=== PATIENT | male | born 1990 | race Caucasian/White ===

== ENCOUNTER 2022-01-15 13:14 | Inpatient (IN) | payer OTHER, SELFPAY ==
[2022-01-15] VITALS (7 sets, daily range): BP systolic 118–151; BP diastolic 62–83; PULSE 76–93; RESP 15–18; TEMP 36.4–38.4; O2SAT 96–98; BMI 35.9; BMI 36.6
--- NOTE | 2022-01-15 13:27 | CT_ITS ---
STUDY: CT ABDOMEN AND PELVIS WITH CONTRAST REASON FOR EXAM: Male, 31 years old. LLQ pain RADIATION DOSAGE (If Supplied By Facility): CTDIvol = ( 15.38 ) mGy, DLP = ( 1419.17 ) mGycm TECHNIQUE: Transaxial images were obtained from the dome of the diaphragm to the symphysis pubis without oral contrast. 100 ML ISOVUE 300 was administered. Sagittal and coronal images were reconstructed. Individualized dose optimization techniques were used for this CT. COMPARISON: None. FINDINGS: The visualized lung bases are unremarkable. The visualized portions of the heart are within normal limits. There is decreased attenuation of the liver consistent with steatosis. Normal gallbladder and extrahepatic biliary system. Normal spleen. Normal pancreas. Normal bilateral adrenal glands. Normal right kidney. Normal left kidney. Normal visualized stomach. Normal small intestine. There is diverticulosis, with thickening of the colon wall, and pericolonic inflammation changes consistent with acute diverticulitis. There is evidence of a localized perforation along the antimesenteric side of the sigmoid colon. No evidence of abscess or fluid collection is seen at this time. The appendix is visualized and appears normal. Normal abdominal aorta. Normal inferior vena cava. There is borderline retroperitoneal lymphadenopathy with enlarged nodes no greater than 10mm in the short axis diameter. Normal urinary bladder. There is a small umbilical hernia containing fat. Normal osseous structures. CT/Abdomen/Pelvis W IV Cont ONLY IMPRESSION: Findings in comparison with acute sigmoid diverticulitis with localized and contained perforation along the antimesenteric side of the colon. There is no evidence of a fluid collection or abscess at this time. Fatty infiltration of the liver. Electronically Signed: Arian Caballero MD at 14:36 EDT ,
--- NOTE | 2022-01-15 13:29 | EDS_ITS ---
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 He felt left lower quadrant soreness during this, but it was mild. The next day, he was sore all over including there, and over the last couple days all of the other sore areas have dissipated and feel better but the left lower quadrant has continued to worsen. He has no other associated symptoms. No blood in the stool or urine, no nausea or vomiting, no radiation into the back, worse when he moves around and better when he sits still. Prior similar symptoms: No Recent Illness/Hospitalization: No PFSH PFSH Medical History no medical history no medical history Home Medications NK 01/15/22 [History Last Taken Unknown] Allergy/AdvReac Type Severity Reaction Status Date / Time No Known Allergies Allergy Verified 01/15/22 13:16 Surgical History no surgical history no surgical history Social History Smoking Status: Never smoker [facility] ED Constitutional Constitutional ED: Denies chills or fever(s) Eyes Eyes: Denies change in vision or diplopia ENT ENT ED: Denies rhinorrhea or sore throat Cardiovascular Cardiovascular: Denies chest pain or palpitations Respiratory/Chest Respiratory/Chest: Denies cough or dyspnea Gastrointestinal Gastrointestinal: Reports abdominal pain; Denies diarrhea, nausea or vomiting Genitourinary Genitourinary ED: Denies dysuria or hematuria Musculoskeletal Musculoskeletal: Denies back pain or neck pain Integumentary Denies abscess or rash Neurologic Neurologic: Denies headache(s), paresthesias or weakness Psychiatric Psychiatric: Denies anxiety or suicidal thoughts EXAM Physical Exam Const Vital Signs: 01/15/22 13:14 01/15/22 14:30 01/15/22 16:00 Temperature 98.2 F 98.9 F 101.1 F H Temperature Source Temporal Oral Oral Pulse Rate 87 88 84 Respiratory Rate 15 16 16 Blood Pressure 144/83 H 130/71 H 121/64 H Blood Pressure Mean 103 90 83 Pulse Ox 97 96 96 Oxygen Delivery Method Room Air Room Air Room Air 01/15/22 17:08 Temperature 100.9 F H Temperature Source Oral Pulse Rate 83 Respiratory Rate 18 Blood Pressure 141/76 H Blood Pressure Mean 97 Pulse Ox Oxygen Delivery Method Positive well nourished, well developed and obese General Appearance ED: well developed and NAD Nutritional Appearance: obese HEENT Reports moist mucous membranes normocephalic and atraumatic Eyes PERRL and EOMs intact bilaterally Neck full ROM and supple Resp normal respiratory effort and clear to auscultation bilaterally Cardio regular rate, regular rhythm and no murmurs GI non-distended GI Narrative: Moderate tenderness left lower quadrant no guarding or rebound, no other areas of tenderness. No palpable mass, no hematoma palpable or ecchymosis visible in the abdominal wall. Tender all the way to the midline. Auscultation: normoactive bowel sounds Palpation: soft Back/Spine no CVA tenderness General Back: other FROM Extremity normal to inspection General Extremety ED: Negative for edema, pulses abnormal or tenderness General Extremity: Negative for edema or pulses abnormal Neuro oriented x3, CN's II-XII intact bilaterally, no sensory deficits noted and gait normal Sensorium / Orientation: awake and alert Motor Exam: strength 5/5 throughout Skin no rashes or lesions noted and no wounds MDM MDM MDM Narrative Medical decision making narrative: Labs and CT were obtained, patient has a significant leukocytosis and CT shows acute sigmoid diverticulitis with an apparent contained perforation and no evidence of a fluid collection/abscess at this time, given this admission to the hospital with IV antibiotics and surgical consult is indicated. He was given Toradol which did help some with his pain he will be offered more analgesics if needed. Cipro Flagyl given here, while in the emergency department receiving antibiotics he developed a fever which is treated as well. Surgery aware. Lab Data Attestation: I reviewed the patient's lab results. Labs: Laboratory Results - last 24 hr 01/15/22 01/15/22 13:30 13:30 WBC 17.4 H RBC 4.92 Hgb 14.1 Hct 42.1 MCV 85.6 MCH 28.7 MCHC 33.5 RDW Std Deviation 40.1 RDW Coeff of Jarrell 12.9 Plt Count 256 MPV 9.7 Immature Gran % (Auto) 0.500 Neut % (Auto) 80.4 H Lymph % (Auto) 9.7 L Bertie % (Auto) 8.8 Eos % (Auto) 0.2 Baso % (Auto) 0.4 Absolute Neuts (auto) 14.0 H Absolute Lymphs (auto) 1.69 Nucleated RBC % 0 Diff Path Review May foll Platelet Estimate ADEQUATE RBC Morphology NORM C+C Sodium 134 L Potassium 3.7 Chloride 103 Carbon Dioxide 26.0 Anion Gap 5 BUN 11 Creatinine 0.84 Estim Creat Clear Calc 141.14 Est GFR (MDRD) Af Amer 139 Est GFR (MDRD) Non-Af 115 BUN/Creatinine Ratio 13.2 Glucose 145 H Calcium 8.7 Radiography Diagnostic Testing: Clinical Impression(s) from Imaging Studies Abdomen/Pelvis CT 01/15/22 13:27 IMPRESSION: Findings in comparison with acute sigmoid diverticulitis with localized and contained perforation along the antimesenteric side of the colon. There is no evidence of a fluid collection or abscess at this time. Fatty infiltration of the liver. Electronically Signed: Arian Caballero MD at 14:36 EDT , Discharge Plan Dx/Rx/DC Orders Clinical Impression: Diverticulitis of colon with perforation Disposition Disposition: Acute Care Hospital [facility]
[2022-01-15] MEDS: Ketorolac 30 MG/ML Syringe IV (13:36)
[2022-01-15] MEDS: 0.9% Normal Saline 1,000 ML 1000 ML IV (13:36)
[2022-01-15 13:41] LABS: Absolute Lymphocyte Count 1.69 X10^3/uL (0.83-4.51); Basophil# 0.07 X10^3/uL; Basophil% 0.4 % (0-1); Eosinophil# 0.04 X10^3/uL; Eosinophils% 0.2 % (0-5); Hematocrit 42.1 % (40-54); Hemoglobin 14.1 g/dL (13.0-16.5); Lymphocyte # 1.69 X10^3/ul (0.83-4.51); Lymphocyte % 9.7 % (19-41); Mean Corp Hgb Conc 33.5 g/dL (32-36); Mean Corpuscular Hgb 28.7 pg (27.0-32.0); Mean Corpuscular Volume 85.6 fL (80-94); Mean Platelet Vol. 9.7 fl (6.2-12.0); Monocyte# 1.53 X10^3/uL; Monocyte% 8.8 % (0-10); NRBC Flagged by Analyzer 0 % (0-5); Neutrophil % 80.4 % (47-70); POSITIVE DIFFERENTIAL YES; Platelet Count 256 K/mm3 (150-450); RBC Distribution Width CV 12.9 % (11.6-14.6); RBC Distribution Width SD 40.1 fl (35.1-43.9); Red Blood Count 4.92 M/mm3 (4.6-6.2); White Blood Count 17.4 K/mm3 (4.4-11.0)
[2022-01-15 13:46] LABS: Differential Indicated SCAN CRITERIA MET
[2022-01-15 13:56] LABS: Anion Gap 5 (5-15); BUN 11 mg/dL (7-18); BUN/Creat Ratio 13.2 RATIO (10-20); Calcium,Total 8.7 mg/dL (8.5-10.1); Chloride 103 mmol/L (98-107); Creatinine, Serum 0.84 mg/dL (0.70-1.30); EST Glomerular Filtration Rate 115 mL/min (>60); Est Glom Filt Rate - Afr Amer 139 mL/min (>60); Estimated Creatinine Clearance 141.14 ml/min; Glucose 145 mg/dL (74-106); Potassium 3.7 mmol/L (3.5-5.1); Sodium Level 134 mmol/L (136-145)
[2022-01-15 14:14] LABS: Platelet Estimate ADEQUATE (ADEQ); Red Cell Morphology NORM C+C NORMAL (NORM C&C)
[2022-01-15] MEDS: Ciprofloxacin 400 MG/200 ML BAG 200 MG IV (14:54)
[2022-01-15] MEDS: metroNIDAZOLE 500 MG/100 ML BAG 100 MG IV (16:09)
[2022-01-15] MEDS: Acetaminophen 500 MG Tablet 1000 MG PO (16:50)
--- NOTE | 2022-01-15 17:09 | ED.RN ---
Throughout duration of receiving IV antibiotics, patient continues to refuse admission. Dr. Coley notified at time of development of a fever, was given Tylenol per order.
--- NOTE | 2022-01-15 17:37 | PCM.HP.STD ---
Documented by User: [email or web address] GascaC 01/15/22 17:51 HPI - General General Date of Admission: 01/15/22 Date of Service: 01/15/22 Chief Complaint: Abdominal pain HPI Narrative AYLA VELARDE, is a 31 M who presents with abdominal pain. Patient states that abdominal pain started Friday after he picked up a plow. Patient states that he originally thought that it was a strained muscle but his abdominal pain has continued to get worse. Patient states that he has not had any nausea or vomiting but has decreased appetite over the past 2 days. Patient has no medical history and has never had surgery before [facility] Medical History no medical history Home Medications NK 01/15/22 [History Last Taken Unknown] Allergy/AdvReac Type Severity Reaction Status Date / Time No Known Allergies Allergy Verified 01/15/22 13:16 Surgical History no surgical history Social History Smoking Status: Never smoker ROS Constitutional Constitutional: Reports chills, fever(s) and malaise; Denies anorexia, fatigue or weakness Cardiovascular Cardiovascular: Denies chest pain, edema, palpitations or syncope Respiratory/Chest Respiratory/Chest: Denies cough, shortness of breath at rest, shortness of breath with exertion or wheezing Gastrointestinal Gastrointestinal: Reports abdominal pain; Denies constipation, diarrhea, nausea or vomiting Genitourinary Genitourinary: Denies dysuria Musculoskeletal Musculoskeletal: Denies back pain, extremity pain, joint pain or joint stiffness Integumentary Integumentary: Denies dry skin Neurologic Neurologic: Denies abnormal gait, abnormal speech, confusion or dizziness Psychiatric Psychiatric: Denies anxiety or depression Endocrine Endocrinology: Denies change in body appearance Hematologic/Lymphatic Hematologic/Lymphatic: Denies anemia Vital Signs Vital Signs Vital Signs: 01/15/22 13:14 01/15/22 14:30 01/15/22 16:00 Temperature 98.2 F 98.9 F 101.1 F H Temperature Source Temporal Oral Oral Pulse Rate 87 88 84 Respiratory Rate 15 16 16 Blood Pressure 144/83 H 130/71 H 121/64 H Blood Pressure Mean 103 90 83 Pulse Ox 97 96 96 Oxygen Delivery Method Room Air Room Air Room Air 01/15/22 17:08 Temperature 100.9 F H Temperature Source Oral Pulse Rate 83 Respiratory Rate 18 Blood Pressure 141/76 H Blood Pressure Mean 97 Pulse Ox Oxygen Delivery Method Weight Weight: 265 lb Body Mass Index (BMI) 35.9 Physical Exam Const alert, oriented x3 and no apparent distress General Appearance: cooperative HEENT normocephalic and head/scalp atraumatic Eyes conjunctivae normal and no scleral icterus Neck supple General: trachea midline Resp normal respiratory effort, normal air movement and clear to auscultation bilaterally Cardio regular rate, regular rhythm, S1 normal heart sound, S2 normal heart sound and peripheral pulses 2+ throughout GI soft to palpation Palpation: tender RLQ Extremity normal capillary refill and no clubbing, cyanosis or edema General Extremity: no tenderness to palpation of joints or extremities Skin General Skin Exam: no breakdown and turgor normal Lesions: no lesions Rashes: no rashes Neuro no focal motor deficits and no sensory deficits noted Motor Exam: Negative for general weakness Psych thought process normal and affect normal Appearance: appropriate Results Lab / Micro Data Result Diagrams: 01/15/22 13:30 01/15/22 13:30 Labs: Laboratory Results - last 24 hr 01/15/22 13:30: WBC 17.4 H, RBC 4.92, Hgb 14.1, Hct 42.1, MCV 85.6, MCH 28.7, MCHC 33.5, RDW Std Deviation 40.1, RDW Coeff of Jarrell 12.9, Plt Count 256, MPV 9.7, Immature Gran % (Auto) 0.500, Neut % (Auto) 80.4 H, Lymph % (Auto) 9.7 L, [place] % (Auto) 8.8, Eos % (Auto) 0.2, Baso % (Auto) 0.4, Absolute Neuts (auto) 14.0 H, Absolute Lymphs (auto) 1.69, Nucleated RBC % 0, Diff Path Review May foll, Platelet Estimate ADEQUATE, RBC Morphology NORM C+C 01/15/22 13:30: Sodium 134 L, Potassium 3.7, Chloride 103, Carbon Dioxide 26.0, Anion Gap 5, BUN 11, Creatinine 0.84, Estim Creat Clear Calc 141.14, Est GFR (MDRD) Af Amer 139, Est GFR (MDRD) Non-Af 115, BUN/Creatinine Ratio 13.2, Glucose 145 H, Calcium 8.7 Radiology Impression Abdomen/Pelvis CT 01/15/22 13:27 IMPRESSION: Findings in comparison with acute sigmoid diverticulitis with localized and contained perforation along the antimesenteric side of the colon. There is no evidence of a fluid collection or abscess at this time. Fatty infiltration of the liver. Electronically Signed: Arian Caballero MD at 14:36 EDT , Assessment & Plan Assessment/Plan (1) Diverticulitis of colon with perforation: PLAN: 1. Diverticulitis of colon with perforation -Admit to [facility] -Merrem 1 g every 8 hours IV -General surgery consulted, Dr. Michel at bedside evaluating patient during my evaluation. -Normal saline 125 mL/h -Pain management regimen ordered -Nutrition consulted for recommendations for diet for diverticulosis -Patient n.p.o. with sips and chips -CBC and BMP ordered in a.m., white blood cell count 17.4 DVT prophylaxis-low risk encourage ambulation This patient was seen by Kellie Garcia, ALHAJI-C under the supervision of Dr. Prater. 27 minutes spent in clinical coordination of patient's plan of care. Documented by User: Dr. Cristobal Prater DO 01/15/22 19:41 HPI - General General Date of Admission: 01/15/22 [facility] Medical History no medical history Home Medications NK 01/15/22 [History Last Taken Unknown] Allergy/AdvReac Type Severity Reaction Status Date / Time No Known Allergies Allergy Verified 01/15/22 13:16 Surgical History no surgical history Social History Smoking Status: Never smoker Results Lab / Micro Data Result Diagrams: 01/15/22 13:30 01/15/22 13:30 Charges/Coding Addendum Addendum: Patient was seen and examined independently of Mary Garcia today, he came to the emergency room today with complaints of left lower quadrant abdominal pain over the last several days. Work-up in the emergency room revealed the patient to have findings compatible with acute sigmoid diverticulitis with localized and contained perforation along the antimesenteric side of the colon. There was no evidence of abscess however. Initially the patient did not want to be admitted to the hospital but then ran a temperature in the emergency room and consented to admission. Work-up in the ER included a CBC which showed an elevated white blood cell count. Patient has no chronic medical issues. On examination he appeared in good health and spirits. Vital signs as documented. Skin warm and dry and without overt rashes. Neck without JVD, neck was supple, trachea midline, thyroid was normal. Lungs clear bilaterally, normal air movement was noted. Heart exam notable for regular rhythm, normal sounds and absence of murmurs, rubs or gallops. Abdomen-examination of the abdomen reveals left lower quadrant abdominal tenderness on palpation, patient has bowel sounds present in all 4 quadrants, there is no rebound abdominal tenderness noted. No organomegaly could be appreciated.. Extremities nonedematous, no cyanosis was noted, no clubbing was noted. Neuro: Cranial nerves II through XII are grossly intact, no focal motor deficits were noted, sensation to light touch and pinprick intact, motor exam 5/5 throughout. Psych: Patient is alert and oriented x3, he does not appear anxious or depressed, he does not appear agitated. Impression #1 acute diverticulitis with perforation of sigmoid colon without abscess-patient will be admitted to [facility] 3, he will be given IV antibiotics and IV fluids, he was seen in consultation by general surgery. IV pain medications will be administered if needed, IV antinausea meds will be administered also. I have reviewed Mary Garcia's history and physical including her medical assessment and plan of care and with the above additions endorse it. Total clinical time spent by myself addressing the patient's medical issues, reviewing the patient's data, and collaborating with the patient's care team: 43 minutes Visit Charges Inpatient E&M: 06818 Init Hosp L3
--- NOTE | 2022-01-15 17:42 | CON.PCM.SX_ITS ---
Assessment & Plan Assessment/Plan (1) Diverticulitis of colon with perforation: PLAN: CT abdomen pelvis reviewed patient, CT consistent with sigmoid diverticulitis with contained perforation. Patient will be admitted kept n.p.o./IV fluids okay for sips and chips Leukocytosis IV antibiotics per primary. Discussed with patient plan for conservative management unless increased white blood count increased pain or change in vital signs. Patient over the question this time. We will likely repeat CT abdomen pelvis in a couple days. Wendi Michel M.D. Pager: [phone] [facility] [address] [place] [address], Outpatient Pavilion, [address] [place] [address] Office: [phone] HPI Consult Data Date of Consult: 01/16/22 HPI Narrative HPI Narrative: AYLA VELARDE, is a 31 M who presents left lower quadrant abdominal pain which got worse on Friday. Patient last ate lunch today but has not had much of an appetite since the weekend. 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 Patient states that the soreness got better except for his abdomen was still sore on Friday did get worse. Patient had some nausea denies any vomiting. Patient admits to chills/feeling warm CT abdomen pelvis did show sigmoid diverticulitis with perforation?contained, white blood count 17.4. Patient did get IV antibiotics in ER. [facility] Medical History no medical history Home Medications NK 01/15/22 [History Last Taken Unknown] Allergy/AdvReac Type Severity Reaction Status Date / Time No Known Allergies Allergy Verified 01/15/22 13:16 Surgical History no surgical history Social History Smoking Status: Never smoker ROS Constitutional Constitutional: Reports anorexia, chills and fever(s) ENT HEENT: Denies dizziness Cardiovascular Cardiovascular: Denies chest pain Respiratory/Chest Respiratory/Chest: Denies shortness of breath at rest Gastrointestinal Gastrointestinal: Reports abdominal pain; Denies constipation, diarrhea, heartburn, hematemesis, melena or vomiting Genitourinary Genitourinary: Denies burning urination or dysuria Musculoskeletal Musculoskeletal: Denies joint pain Integumentary Integumentary: Denies rash Neurologic Neurologic: Denies abnormal gait, abnormal hearing, focal weakness, paresthesias or sensory deficit Psychiatric Psychiatric: Denies depression Endocrine Endocrinology: Denies palpitations Hematologic/Lymphatic Hematologic/Lymphatic: Denies anemia, easy bleeding or easy bruising Physical Exam Const alert, oriented x3 and no apparent distress HEENT normocephalic and head/scalp atraumatic Resp normal respiratory effort Cardio regular rate GI soft to palpation; Negative for non-distended Palpation: tender LLQ (No peritoneal signs); Negative for guarding Extremity no clubbing, cyanosis or edema Skin no rashes or lesions noted Neuro CN's II-XII intact bilaterally Psych mental status grossly normal Lab / Micro Data Result Diagrams: 01/16/22 06:00 01/16/22 06:00 Labs: Laboratory Results - last 24 hr 01/15/22 13:30: WBC 17.4 H, RBC 4.92, Hgb 14.1, Hct 42.1, MCV 85.6, MCH 28.7, MCHC 33.5, RDW Std Deviation 40.1, RDW Coeff of Jarrell 12.9, Plt Count 256, MPV 9.7, Immature Gran % (Auto) 0.500, Neut % (Auto) 80.4 H, Lymph % (Auto) 9.7 L, M gregoria % (Auto) 8.8, Eos % (Auto) 0.2, Baso % (Auto) 0.4, Absolute Neuts (auto) 14.0 H, Absolute Lymphs (auto) 1.69, Nucleated RBC % 0, Diff Path Review May foll, Platelet Estimate ADEQUATE, RBC Morphology NORM C+C 01/15/22 13:30: Sodium 134 L, Potassium 3.7, Chloride 103, Carbon Dioxide 26.0, Anion Gap 5, BUN 11, Creatinine 0.84, Estim Creat Clear Calc 141.14, Est GFR (MDRD) Af Amer 139, Est GFR (MDRD) Non-Af 115, BUN/Creatinine Ratio 13.2, Glucose 145 H, Calcium 8.7 Radiology Impression Abdomen/Pelvis CT 01/15/22 13:27 IMPRESSION: Findings in comparison with acute sigmoid diverticulitis with localized and contained perforation along the antimesenteric side of the colon. There is no evidence of a fluid collection or abscess at this time. Fatty infiltration of the liver. Electronically Signed: Arian Caballero MD at 14:36 EDT , Charges/Coding Visit Charges Inpatient E&M: 74605 Init Hosp L3
[2022-01-15] MEDS: 0.9% Saline Lock 10 ML Syringe IV ×2 (18:55→23:07)
[2022-01-15] MEDS: oxyCODONE 5 MG Tablet PO (18:55)
[2022-01-15] MEDS: 0.9% Normal Saline 1,000 ML 125 ML IV (18:55)
[2022-01-15] MEDS: Acetaminophen 325 MG Tablet 650 MG PO (23:07)
[2022-01-16] MEDS: oxyCODONE 5 MG Tablet PO ×2 (01:02→06:52)
[2022-01-16] MEDS: 0.9% Normal Saline 1,000 ML 125 ML IV ×3 (03:07→18:29)
[2022-01-16 04:16] VITALS: BP 117/62; PULSE 80; RESP 16; TEMP 37.4; O2SAT 96
[2022-01-16 06:38] LABS: Absolute Lymphocyte Count 1.86 X10^3/uL (0.83-4.51); Absolute Neutrophil Count 13.5 X10^3/uL (2.0-7.7); Basophil# 0.06 X10^3/uL; Basophil% 0.3 % (0-1); Eosinophil# 0.06 X10^3/uL; Eosinophils% 0.3 % (0-5); Hematocrit 38.2 % (40-54); Hemoglobin 12.6 g/dL (13.0-16.5); Lymphocyte # 1.86 X10^3/ul (0.83-4.51); Lymphocyte % 10.6 % (19-41); Mean Corpuscular Hgb 28.7 pg (27.0-32.0); Monocyte# 1.92 X10^3/uL; Monocyte% 10.9 % (0-10); NRBC Flagged by Analyzer 0 % (0-5); Neutrophil # 13.53 X10^3/uL (2.7-7.7); Neutrophil % 77.2 % (47-70); POSITIVE DIFFERENTIAL YES; Platelet Count 252 K/mm3 (150-450); RBC Distribution Width CV 13.2 % (11.6-14.6); RBC Distribution Width SD 41.6 fl (35.1-43.9); Red Blood Count 4.39 M/mm3 (4.6-6.2); White Blood Count 17.6 K/mm3 (4.4-11.0)
[2022-01-16 06:54] LABS: Differential Indicated SCAN CRITERIA MET
[2022-01-16 07:00] LABS: Atypical Lymphocyte 1+ %
[2022-01-16 07:02] LABS: Anion Gap 7 (5-15); BUN 9 mg/dL (7-18); BUN/Creat Ratio 12.3 RATIO (10-20); Calcium,Total 8.4 mg/dL (8.5-10.1); Chloride 104 mmol/L (98-107); Creatinine, Serum 0.73 mg/dL (0.70-1.30); EST Glomerular Filtration Rate 133 mL/min (>60); Est Glom Filt Rate - Afr Amer 161 mL/min (>60); Glucose 102 mg/dL (74-106); Potassium 3.8 mmol/L (3.5-5.1); Sodium Level 136 mmol/L (136-145)
--- NOTE | 2022-01-16 08:43 | PCM.PN.SRG ---
Subjective Subjective Patient states left lower quadrant pain improved from yesterday. Patient is on IV meropenem leukocytosis still 17 Objective Data Objective Data Vital Signs: Vital Signs Temp Pulse Resp BP Pulse Ox 99.4 F H 80 16 117/62 96 01/16/22 04:16 01/16/22 04:16 01/16/22 04:16 01/16/22 04:16 01/16/22 04:16 Oxygen Delivery Method Room Air Weight: 270 lb Body Mass Index (BMI) 36.6 Intake & Output: Intake and Output for Last 24 Hours 01/14/22 01/15/22 01/16/22 23:59 23:59 23:59 Intake Total 1300.25 / 1300.25 1182.5 / 1182.5 Balance 1300.25 / 1300.25 1182.5 / 1182.5 Lab / Micro Data Result Diagrams: 01/16/22 06:00 01/16/22 06:00 Labs: Laboratory Results - last 24 hr 01/15/22 13:30: WBC 17.4 H, RBC 4.92, Hgb 14.1, Hct 42.1, MCV 85.6, MCH 28.7, MCHC 33.5, RDW Std Deviation 40.1, RDW Coeff of Jarrell 12.9, Plt Count 256, MPV 9.7, Immature Gran % (Auto) 0.500, Neut % (Auto) 80.4 H, Lymph % (Auto) 9.7 L, [place] % (Auto) 8.8, Eos % (Auto) 0.2, Baso % (Auto) 0.4, Absolute Neuts (auto) 14.0 H, Absolute Lymphs (auto) 1.69, Nucleated RBC % 0, Diff Path Review December, Platelet Estimate ADEQUATE, RBC Morphology NORM C+C 01/15/22 13:30: Sodium 134 L, Potassium 3.7, Chloride 103, Carbon Dioxide 26.0, Anion Gap 5, BUN 11, Creatinine 0.84, Estim Creat Clear Calc 141.14, Est GFR (MDRD) Af Amer 139, Est GFR (MDRD) Non-Af 115, BUN/Creatinine Ratio 13.2, Glucose 145 H, Calcium 8.7 01/16/22 06:00: WBC 17.6 H, RBC 4.39 L, Hgb 12.6 L, Hct 38.2 L, MCV 87.0, MCH 28.7, MCHC 33.0, RDW Std Deviation 41.6, RDW Coeff of Jarrell 13.2, Plt Count 252, MPV 10.0, Immature Gran % (Auto) 0.700, Neut % (Auto) 77.2 H, Lymph % (Auto) 10.6 L, [place] % (Auto) 10.9 H, Eos % (Auto) 0.3, Baso % (Auto) 0.3, Absolute Neuts (auto) 13.5 H, Absolute Lymphs (auto) 1.86, Nucleated RBC % 0, Diff Path Review December foll, Atypical Lymphocytes 1+ 01/16/22 06:00: Sodium 136, Potassium 3.8, Chloride 104, Carbon Dioxide 25.0, Anion Gap 7, BUN 9, Creatinine 0.73, Estim Creat Clear Calc 162.40, Est GFR (MDRD) Af Amer 161, Est GFR (MDRD) Non-Af 133, BUN/Creatinine Ratio 12.3, Glucose 102, Calcium 8.4 L Radiography Diagnostic Testing: Radiology Impression Abdomen/Pelvis CT 01/15/22 13:27 IMPRESSION: Findings in comparison with acute sigmoid diverticulitis with localized and contained perforation along the antimesenteric side of the colon. There is no evidence of a fluid collection or abscess at this time. Fatty infiltration of the liver. Electronically Signed: Arian Caballero MD at 14:36 EDT Reading Location ID and State: [address] [place] [address] , Service support , Physical Exam Const alert, oriented x3 and no apparent distress Resp normal respiratory effort Cardio regular rate GI soft to palpation; Negative for non-distended Palpation: tender LLQ (No peritoneal signs); Negative for guarding Assessment & Plan Assessment/Plan (1) Diverticulitis of colon with perforation: PLAN: Continue conservative management. Okay for ice chips otherwise n.p.o., IV fluids IV antibiotics changed to Zosyn from meropenem, leukocytosis still 17 Pain control Encourage ambulation Wendi Michel M.D. Pager: [phone] [facility] [address] [place] [address], Outpatient Pavilion, [address] [place] [id number] Office: [phone] Charges/Coding Visit Charges Inpatient E&M: 18251 Subs Hosp L2
[2022-01-16 10:20] VITALS: BP 112/64; PULSE 75; RESP 17; TEMP 37.1; O2SAT 96
--- NOTE | 2022-01-16 10:35 | CASEMGMT ---
LINO STINSON Assessment: Face to Face with pt for initial transition planning/care coordination assessment. LINO STINSON introduced self and role at [facility], pt voices understanding and consents to assessment. Pt is A/O x4 and answers all questions appropriately at this time. Pt lying in bed in no distress. Care providers, pharmacy, and demographics verified/updated. Admitting Dx: diverticulitis with perforation PCP:St[facility]el Specialists:Pt denies. Preferred Pharmacy: [facility] Retail Insurance: MMO Prescription Benefit: Pt is unsure LW/HPOA: Pt denies having a LW/DPOA. Provided pt with social work rack card in case he would like to have this done post hospitalization. LNOK: Daniel/Alberta Chamorro, parents Living Arrangements: Pt lives alone in a ground level apt with no steps to enter. Pt reports he is I in ADL's and denies concerns at home. Transportation: Pt drives self and denies concerns with transportation. DME/HHC: Pt denies having any DME or hx of HHC. Pt states no concerns with going home at time of dc. Pt states no further concerns/needs. CM to follow. Advised pt to ask CM if any further question/concerns/needs arise, voices understanding. Pt Goal: Home Plan: Home
--- NOTE | 2022-01-16 10:51 | PN.HOSP_ITS ---
Documented by User: Kellie Garcia NP-Leena 01/16/22 10:54 Subjective Subjective Patient seen and examined. Patient lying in bed no distress noted. Patient states that his abdominal pain has improved. Discussed with patient that his white blood cell count remains the same. Objective Data Objective Data Vital Signs: Vital Signs Temp Pulse Resp BP Pulse Ox 98.8 F 75 17 112/64 96 01/16/22 10:20 01/16/22 10:20 01/16/22 10:20 01/16/22 10:20 01/16/22 10:20 Oxygen Delivery Method Room Air Weight: 270 lb Body Mass Index (BMI) 36.6 Intake & Output: Intake and Output for Last 24 Hours 01/14/22 01/15/22 01/16/22 23:59 23:59 23:59 Intake Total 1300.25 / 1300.25 2215.0 / 2215.0 Balance 1300.25 / 1300.25 2215.0 / 2215.0 Lab / Micro Data Result Diagrams: 01/16/22 06:00 01/16/22 06:00 Labs: Laboratory Results - last 24 hr 01/15/22 13:30: WBC 17.4 H, RBC 4.92, Hgb 14.1, Hct 42.1, MCV 85.6, MCH 28.7, MCHC 33.5, RDW Std Deviation 40.1, RDW Coeff of Jarrell 12.9, Plt Count 256, MPV 9.7, Immature Gran % (Auto) 0.500, Neut % (Auto) 80.4 H, Lymph % (Auto) 9.7 L, [place] % (Auto) 8.8, Eos % (Auto) 0.2, Baso % (Auto) 0.4, Absolute Neuts (auto) 14.0 H, Absolute Lymphs (auto) 1.69, Nucleated RBC % 0, Diff Path Review May foll, Platelet Estimate ADEQUATE, RBC Morphology NORM C+C 01/15/22 13:30: Sodium 134 L, Potassium 3.7, Chloride 103, Carbon Dioxide 26.0, Anion Gap 5, BUN 11, Creatinine 0.84, Estim Creat Clear Calc 141.14, Est GFR (MDRD) Af Amer 139, Est GFR (MDRD) Non-Af 115, BUN/Creatinine Ratio 13.2, Glucose 145 H, Calcium 8.7 01/16/22 06:00: WBC 17.6 H, RBC 4.39 L, Hgb 12.6 L, Hct 38.2 L, MCV 87.0, MCH 28.7, MCHC 33.0, RDW Std Deviation 41.6, RDW Coeff of Jarrell 13.2, Plt Count 252, MPV 10.0, Immature Gran % (Auto) 0.700, Neut % (Auto) 77.2 H, Lymph % (Auto) 10.6 L, [place] % (Auto) 10.9 H, Eos % (Auto) 0.3, Baso % (Auto) 0.3, Absolute Neuts (auto) 13.5 H, Absolute Lymphs (auto) 1.86, Nucleated RBC % 0, Diff Path Review May foll, Atypical Lymphocytes 1+ 01/16/22 06:00: Sodium 136, Potassium 3.8, Chloride 104, Carbon Dioxide 25.0, Anion Gap 7, BUN 9, Creatinine 0.73, Estim Creat Clear Calc 162.40, Est GFR (MDRD) Af Amer 161, Est GFR (MDRD) Non-Af 133, BUN/Creatinine Ratio 12.3, Glucose 102, Calcium 8.4 L Radiography Diagnostic Testing: Radiology Impression Abdomen/Pelvis CT 01/15/22 13:27 IMPRESSION: Findings in comparison with acute sigmoid diverticulitis with localized and contained perforation along the antimesenteric side of the colon. There is no evidence of a fluid collection or abscess at this time. Fatty infiltration of the liver. Electronically Signed: Arian Caballero MD at 14:36 EDT , Physical Exam Const alert, oriented x3 and no apparent distress General Appearance: cooperative HEENT normocephalic and head/scalp atraumatic Eyes conjunctivae normal and no scleral icterus Neck supple General: trachea midline Resp normal respiratory effort, normal air movement and clear to auscultation bilaterally Cardio regular rate, regular rhythm, S1 normal heart sound, S2 normal heart sound and peripheral pulses 2+ throughout GI soft to palpation Palpation: tender RLQ Extremity normal capillary refill and no clubbing, cyanosis or edema General Extremity: no tenderness to palpation of joints or extremities Skin General Skin Exam: no breakdown and turgor normal Lesions: no lesions Rashes: no rashes Neuro no focal motor deficits and no sensory deficits noted Motor Exam: Negative for general weakness Psych thought process normal and affect normal Appearance: appropriate Assessment & Plan Assessment/Plan (1) Diverticulitis of colon with perforation: PLAN: 1. Diverticulitis of colon with perforation -Patient transition from Merrem I.V. to Zosyn IV at the request of surgery -Dr. Michel following -Normal saline 125 mL/h -Pain management regimen ordered -Nutrition consulted for recommendations for diet for diverticulosis -Patient remains on sips and chips -CBC and BMP ordered in a.m., white blood cell count 17.6 DVT prophylaxis-low risk encourage ambulation This patient was seen by LISA Gasca under the supervision of Dr. Prater. 12 minutes spent in clinical coordination of patient's plan of care. Documented by User: Dr. Cristobal Prater DO 01/16/22 20:02 Objective Data Lab / Micro Data Result Diagrams: 01/16/22 06:00 01/16/22 06:00 Charges/Coding Addendum Addendum: Patient was seen and examined today independently of Mary Garcia, his abdominal pain is improved today, his white count still is elevated at 17.6. I suggest his care with , she would like him changed to Zosyn from meropenem-I do not have a problem with this. I explained to the patient that he would have to continue to stay in the hospital and that I expected his white count to improve tomorrow. He was changed over to clear liquids today by surgery at the urging of the patient. On examination he appeared in good health and spirits. Vital signs as documented. Skin warm and dry and without overt rashes. Neck without JVD, neck was supple, trachea midline, thyroid was normal. Lungs clear bilaterally, normal air movement was noted. Heart exam notable for regular rhythm, normal sounds and absence of murmurs, rubs or gallops. Abdomen-mild left lower quadrant abdominal tenderness to palpation was noted. No rebound abdominal tenderness was noted. Bowel sounds are present, abdomen is not distended. Extremities nonedematous, no cyanosis was noted, no clubbing was noted. Neuro: Cranial nerves II through XII are grossly intact, no focal motor deficits were noted, sensation to light touch and pinprick intact, motor exam 5/5 throughout. Psych: Patient is alert and oriented x3, he does not appear anxious or depressed, he does not appear agitated. #1 acute diverticulitis with perforation of sigmoid colon without abscess- patient will continue on antibiotics with Zosyn, meropenem was stopped today, surgery will see the patient again tomorrow and he will likely undergo a repeat CT of the abdomen tomorrow. Labs will be obtained in the morning. Continue IV fluid administration. I have reviewed Mary Garcia's progress note including her medical assessment and plan of care and with the above additions endorse it. Total clinical time spent by myself addressing the patient's medical issues, reviewing the data, and collaborating with the patient's care team: 20 minutes Visit Charges Inpatient E&M: 69044 Subs Hosp L2
[2022-01-16 15:32] VITALS: BP 127/79; PULSE 76; RESP 16; TEMP 37.1; O2SAT 96
--- NOTE | 2022-01-16 15:38 | CHAPLAIN ---
Type of Pastoral Visit _x__ Initial Visit ___ Follow-up Visit ___ On-call Visit ___ General Patient Visit ___ Spiritual Assessment ___ Family Conference ___ Bereavement ___ Rapid Response ___ Code Blue ___ Other (describe below) Pastoral Care Referral From _x__ Patient ___ Family ___ Nurse ___ Physician ___ Nursing Manager ___ Orthopedic Mechanic ___ Other (describe below) Sacrament/Intervention _x__ Active listening ___ Anointing ___ Adventist ___ Bereavement ___ Communion ___ Tiffanie exploration ___ ___ Life review ___ Prayer ___ Reconciliation ___ Sacrament of Sick ___ Supportive presence ___ Wedding ___ Other (describe below) Pastoral Comments patient is lying down in bed and watching TV; pt states several times that he is fine; pt deflects questions to ask this cds sales advisor how are you?; no needs noted
[2022-01-16] MEDS: Acetaminophen 325 MG Tablet 650 MG PO (15:41)
[2022-01-16 20:15] VITALS: BP 121/75; PULSE 68; RESP 16; TEMP 36.6; O2SAT 99
[2022-01-17 02:15] VITALS: BP 126/67; PULSE 69; RESP 16; TEMP 36.8; O2SAT 98
[2022-01-17] MEDS: 0.9% Normal Saline 1,000 ML 125 ML IV (02:19)
[2022-01-17 06:17] LABS: Absolute Lymphocyte Count 1.83 X10^3/uL (0.83-4.51); Absolute Neutrophil Count 7.9 X10^3/uL (2.0-7.7); Basophil# 0.08 X10^3/uL; Basophil% 0.7 % (0-1); Eosinophil# 0.11 X10^3/uL; Hematocrit 36.5 % (40-54); Hemoglobin 12.1 g/dL (13.0-16.5); Lymphocyte # 1.83 X10^3/ul (0.83-4.51); Lymphocyte % 16.7 % (19-41); Mean Corp Hgb Conc 33.2 g/dL (32-36); Mean Corpuscular Hgb 28.8 pg (27.0-32.0); Mean Corpuscular Volume 86.9 fL (80-94); Mean Platelet Vol. 9.9 fl (6.2-12.0); Monocyte# 1.01 X10^3/uL; Monocyte% 9.2 % (0-10); NRBC Flagged by Analyzer 0 % (0-5); Neutrophil # 7.89 X10^3/uL (2.7-7.7); Neutrophil % 72.1 % (47-70); Platelet Count 263 K/mm3 (150-450); RBC Distribution Width CV 13.2 % (11.6-14.6); RBC Distribution Width SD 41.8 fl (35.1-43.9)
[2022-01-17 06:44] LABS: ALB/GLOB Ratio 0.7 RATIO (0.9-2.4); AST(SGOT) 34 U/L (15-37); Alanine Aminotransfer ALT/SGPT 63 U/L (16-61); Albumin, Serum 2.8 g/dL (3.2-5.0); Alkaline Phosphatase 80 U/L (45-117); Anion Gap 7 (5-15); BUN 8 mg/dL (7-18); BUN/Creat Ratio 10.8 RATIO (10-20); Calcium,Total 8.4 mg/dL (8.5-10.1); Chloride 106 mmol/L (98-107); Creatinine, Serum 0.74 mg/dL (0.70-1.30); EST Glomerular Filtration Rate 132 mL/min (>60); Est Glom Filt Rate - Afr Amer 159 mL/min (>60); Estimated Creatinine Clearance 160.21 ml/min; Glucose 103 mg/dL (74-106); Potassium 3.9 mmol/L (3.5-5.1); Protein, Total 6.8 g/dL (6.4-8.2); Sodium Level 137 mmol/L (136-145)
[2022-01-17 07:40] VITALS: BP 127/84; PULSE 63; RESP 16; TEMP 36.7; O2SAT 98
--- NOTE | 2022-01-17 08:23 | CT_ITS ---
STUDY: CT ABDOMEN AND PELVIS WITH CONTRAST REASON FOR EXAM: Male, 31 years old. Acute diverticulitis with free air RADIATION DOSAGE (If Supplied By Facility): CTDIvol = ( 22.01 ) mGy, DLP = ( 1340.70 ) mGycm TECHNIQUE: Transaxial images were obtained from the dome of the diaphragm to the symphysis pubis with oral contrast. Oral and amp; IV Gastrografin and amp; 100mL Isovue-300 was administered. Sagittal and coronal images were reconstructed. Individualized dose optimization techniques were used for this CT. COMPARISON: Comparison is made with prior study of 01/15/2022. FINDINGS: The visualized lung bases are unremarkable. The visualized portions of the heart are within normal limits. Normal liver. Normal gallbladder and extrahepatic biliary system. Normal spleen. Normal pancreas. Normal bilateral adrenal glands. Normal right kidney. Normal left kidney. Mild degree of increased right perinephric stranding. Normal visualized stomach. Normal small intestine. There is diverticulosis, with thickening of the colon wall, and pericolonic inflammation changes consistent with acute diverticulitis. Stable appearance with focal localized perforation along the antimesenteric side of the sigmoid mesentery. No evidence of a abscess or fluid collection at this time. The appendix is visualized and appears normal. Normal abdominal aorta. Normal inferior vena cava. There is borderline retroperitoneal lymphadenopathy with enlarged nodes no greater than 10mm in the short axis diameter. Normal urinary bladder. There is a small umbilical hernia containing fat. Normal osseous structures. CT/Abdomen/Pelvis WITH Contrast IMPRESSION: Stable examination. Electronically Signed: Arian Caballero MD at 11:49 EDT ,
--- NOTE | 2022-01-17 08:49 | PCM.PN.HOSP ---
Subjective Subjective Patient is a 31-year-old gentleman who presented with left lower quadrant abdominal pain of [address] of the abdomen obtained on admission demonstrated findings consistent with acute sigmoid diverticulitis with localized and contained perforation along the antimesenteric side of the colon. Admitted to regular nursing floor with consultation placed to general surgery Objective Data Objective Data Vital Signs: Vital Signs Temp Pulse Resp BP Pulse Ox 98.2 F 69 16 126/67 H 98 01/17/22 02:15 01/17/22 02:15 01/17/22 02:15 01/17/22 02:15 01/17/22 02:15 Oxygen Delivery Method Room Air Weight: 122.47 kg Body Mass Index (BMI) 36.6 Intake & Output: Intake and Output for Last 24 Hours 01/15/22 01/16/22 01/17/22 23:59 23:59 23:59 Intake Total 1300.25 / 1300.25 3265.0 / 3265.0 1029.17 / 1029.17 Balance 1300.25 / 1300.25 3265.0 / 3265.0 1029.17 / 1029.17 Lab / Micro Data Result Diagrams: 01/17/22 05:57 01/17/22 05:57 Labs: Laboratory Results - last 24 hr 01/17/22 05:57: WBC 11.0, RBC 4.20 L, Hgb 12.1 L, Hct 36.5 L, MCV 86.9, MCH 28.8, MCHC 33.2, RDW Std Deviation 41.8, RDW Coeff of Jarrell 13.2, Plt Count 263, MPV 9.9, Immature Gran % (Auto) 0.300, Neut % (Auto) 72.1 H, Lymph % (Auto) 16.7 L, [place] % (Auto) 9.2, Eos % (Auto) 1.0, Baso % (Auto) 0.7, Absolute Neuts (auto) 7.9 H, Absolute Lymphs (auto) 1.83, Nucleated RBC % 0 01/17/22 05:57: Sodium 137, Potassium 3.9, Chloride 106, Carbon Dioxide 24.0, Anion Gap 7, BUN 8, Creatinine 0.74, Estim Creat Clear Calc 160.21, Est GFR (MDRD) Af Amer 159, Est GFR (MDRD) Non-Af 132, BUN/Creatinine Ratio 10.8, Glucose 103, Calcium 8.4 L, Total Bilirubin 0.90, AST 34, ALT 63 H, Alkaline Phosphatase 80, Total Protein 6.8, Albumin 2.8 L, Globulin 4.0, Albumin/Globulin Ratio 0.7 L Physical Exam Narrative GENERAL: cooperative HEENT: Atraumatic; EYES; Anicteric, Normal Conjunctiva NECK; supple, normal thyroid, RESPIRATORY: Diminished to auscultation CARDIOVASCULAR: Regular S1 S2, GI: soft, normoactive bowel sounds, : No Renal angle tenderness; EXTREMITIES: No edema, no clubbing, MUSCULOSKELETAL: no muscle wasting NEURO: Awake; no lateralizing signs. SKIN: No Rash PSYCH; Flat affect Assessment & Plan Assessment/Plan (1) Diverticulitis of colon with perforation: PLAN: Patient is a 31-year-old gentleman who presented with left lower quadrant abdominal pain of [address] of the abdomen obtained on admission demonstrated findings consistent with acute sigmoid diverticulitis with localized and contained perforation along the antimesenteric side of the colon. Admitted to regular nursing floor with consultation placed to general surgery 1. Acute diverticulitis with colonic perforation ? Admitted to regular nursing floor started on Zosyn, bowel rest pain meds and consultation placed to general surgery patient has been seen by Dr. Amin -Plan is for patient to undergo repeat CT of the abdomen and pelvis with oral contrast prior to making a decision regarding his possible discharge 2. Class II obesity with BMI of 36.6 ? Weight loss advised 3. DVT prophylaxis ? SC Maximilian Charges/Coding Visit Charges Inpatient E&M: 99103 Subs Hosp L2
[2022-01-17 11:25] LABS: Pathologist Review Reviewed
[2022-01-17] MEDS: Contrast Allergy Safety Check IV (11:42)
--- NOTE | 2022-01-17 11:55 | PN.SURG_ITS ---
Subjective Subjective Patient is a 31 y/o M I am following in conjunction with Dr. Michel. Patient notes he is feeling very well. he notes soreness of the left lower quadrant otherwise the pain has completely resolved. He denies nausea, vomiting, fever, chills. He has tolerated clear liquids. He voces he is ready to go home. Objective Data Objective Data Vital Signs: Vital Signs Temp Pulse Resp BP Pulse Ox 98.0 F 63 16 127/84 H 98 01/17/22 07:40 01/17/22 07:40 01/17/22 07:40 01/17/22 07:40 01/17/22 07:40 Oxygen Delivery Method Room Air Weight: 270 lb 0.002 oz Body Mass Index (BMI) 36.6 Intake & Output: Intake and Output for Last 24 Hours 01/15/22 01/16/22 01/17/22 23:59 23:59 23:59 Intake Total 1300.25 / 1300.25 3265.0 / 3265.0 2079.17 / 2078.17 Balance 1300.25 / 1300.25 3265.0 / 3265.0 2078. / 2078.17 Lab / Micro Data Result Diagrams: 01/17/22 05:57 01/17/22 05:57 Labs: Laboratory Results - last 24 hr 01/15/22 13:30: Diff Path Review Reviewed 01/17/22 05:57: WBC 11.0, RBC 4.20 L, Hgb 12.1 L, Hct 36.5 L, MCV 86.9, MCH 28.8, MCHC 33.2, RDW Std Deviation 41.8, RDW Coeff of Jarrell 13.2, Plt Count 263, MPV 9.9, Immature Gran % (Auto) 0.300, Neut % (Auto) 72.1 H, Lymph % (Auto) 16.7 L, [place] % (Auto) 9.2, Eos % (Auto) 1.0, Baso % (Auto) 0.7, Absolute Neuts (auto) 7.9 H, Absolute Lymphs (auto) 1.83, Nucleated RBC % 0 01/17/22 05:57: Sodium 137, Potassium 3.9, Chloride 106, Carbon Dioxide 24.0, Anion Gap 7, BUN 8, Creatinine 0.74, Estim Creat Clear Calc 160.21, Est GFR (MDRD) Af Amer 159, Est GFR (MDRD) Non-Af 132, BUN/Creatinine Ratio 10.8, Glu cose 103, Calcium 8.4 L, Total Bilirubin 0.90, AST 34, ALT 63 H, Alkaline Phosphatase 80, Total Protein 6.8, Albumin 2.8 L, Globulin 4.0, Albumin/Globulin Ratio 0.7 L Radiography Diagnostic Testing: Radiology Impression Abdomen/Pelvis CT 01/17/22 08:23 IMPRESSION: Stable examination. Electronically Signed: Arian Caballero MD at 11:49 EDT , Physical Exam GI normal to inspection, nondistended, normoactive bowel sounds, soft to palpation and non-distended GI Narrative: Very slight soreness at the left lower quadrant. No true pain per patient Assessment & Plan Assessment/Plan (1) Diverticulitis of colon with perforation: PLAN: I have discussed this patient with Dr. Michel. Recommend follow-up CT scan of the ab/pel. If improved, will advance to full liquids. Patient will be discharged on low residue/low fiber diet for 2 weeks along with oral antibiotics. Patient in agreement with the plan. Appreciate the opportunity to participate in this patient's care. Charges/Coding Visit Charges Inpatient E&M: 36750 [facility] Hosp L1
--- NOTE | 2022-01-17 13:05 | PCM.DC ---
Discharge Instructions Diet Discharge Diet: - (Low residue/low fiber) Activity Discharge Activity: Return to Normal Activity Follow Up Care Please Follow Up With: Wendi Michel MD When: Please contact our office to schedule a 2 week follow-up Test Results: Test results from this visit will be discussed in further detail at your follow-up appointment, if applicable. Discharge Plan Admission Admit Date/Time: 01/15/22 17:40 Primary Reason for Your Visit: Acute perforated diverticulitis Attending Provider: Will Owusu Primary Care Provider: Jhonathan Jaimes Consulting Providers: Wendi Michel ; Cristobal Prater Instructions Patient Instructions: Low-Fiber Diet, ED Diverticulitis Additional Instructions / Restrictions: Recommend full liquid diet today. Start low residue/low fiber diet tomorrow Discharge Orders/Prescriptions Prescriptions: New amoxicillin-pot clavulanate 875-125 mg tablet 1 tab PO BID 10 Days Qty: 20 RF: 0 Referrals / Follow Up: Jhonathan Jaimes MD [Primary Care Provider] - eWndi Michel MD [STAFF PHYSICIAN] - (Please call our office to schedule an appointment for 2 weeks from discharge ) Disposition Disposition (needs filled in before D/C Order can be placed): Home, Self Care
[2022-01-17 14:00] LABS: Pathologist Review Reviewed
--- NOTE | 2022-01-17 14:28 | DS.PCM_ITS ---
Providers Date of Admission: 01/15/22 Primary Care Physician: Dr. Jhonathan Jaimes MD Consultations 01/15/22 18:22 Consult: General Surgery Routine Consulting Provider: Wendi Michel Reason for Consult: Diverticulitis with perforation EMERGENT Consult: No MD Notified: Yes Date Notified: 01/15/22 Time Notified: 17:48 Method of Notification: ED Physician Initiated Reason For Visit: DIVERTICULITIS WITH PERFORATION Diagnosis Discharge Diagnosis (1) Diverticulitis of colon with perforation: Status: Acute Code(s): K57.20 - Diverticulitis of large intestine with perforation and abscess without bleeding Medications at Discharge Home Medications amoxicillin-pot clavulanate 1 tab PO BID 10 Days #20 tab 01/17/22 Hospital Course Summary of Care Provided Minutes Spent on Discharge: 35 Hospital Course: Patient is a 31-year-old gentleman who presented with left lower quadrant abdominal pain of [address] of the abdomen obtained on admission demonstrated findings consistent with acute sigmoid diverticulitis with localized and contained perforation along the antimesenteric side of the colon. Admitted to regular nursing floor with consultation placed to general surgery 1. Acute diverticulitis with colonic perforation ? Admitted to regular nursing floor started on Zosyn, bowel rest pain meds and consultation placed to general surgery patient has been seen by Dr. Amin -Plan is for patient to undergo repeat CT of the abdomen and pelvis with oral contrast prior to making a decision regarding his possible discharge -CT abdomen and pelvis obtained for follow-up appears stable. Patient tolerated full liquid diet decision was made to discharge patient home patient to follow- up with general surgery as outpatient 2. Class II obesity with BMI of 36.6 ? Weight loss advised 3. DVT prophylaxis ? SC Lovenox Physical Exam Narrative GENERAL: cooperative HEENT: Atraumatic; EYES; Anicteric, Normal Conjunctiva NECK; supple, normal thyroid, RESPIRATORY: Diminished to auscultation CARDIOVASCULAR: Regular S1 S2, GI: soft, normoactive bowel sounds, : No Renal angle tenderness; EXTREMITIES: No edema, no clubbing, MUSCULOSKELETAL: no muscle wasting NEURO: Awake; no lateralizing signs. SKIN: No Rash PSYCH; Flat affect Weight / BMI Weight Weight: 122.47 kg Body Mass Index (BMI) 36.6 ABG / Lab / Microbiology Data Result Diagrams: 01/17/22 05:57 01/17/22 05:57 Laboratory: Laboratory Results - last 24 hr 01/15/22 13:30: Diff Path Review Reviewed 01/16/22 06:00: Diff Path Review Reviewed 01/17/22 05:57: WBC 11.0, RBC 4.20 L, Hgb 12.1 L, Hct 36.5 L, MCV 86.9, MCH 28.8, MCHC 33.2, RDW Std Deviation 41.8, RDW Coeff of Jarrell 13.2, Plt Count 263, MPV 9.9, Immature Gran % (Auto) 0.300, Neut % (Auto) 72.1 H, Lymph % (Auto) 16.7 L, [place] % (Auto) 9.2, Eos % (Auto) 1.0, Baso % (Auto) 0.7, Absolute Neuts (auto) 7.9 H, Absolute Lymphs (auto) 1.83, Nucleated RBC % 0 01/17/22 05:57: Sodium 137, Potassium 3.9, Chloride 106, Carbon Dioxide 24.0, Anion Gap 7, BUN 8, Creatinine 0.74, Estim Creat Clear Calc 160.21, Est GFR (MDRD) Af Amer 159, Est GFR (MDRD) Non-Af 132, BUN/Creatinine Ratio 10.8, Glucose 103, Calcium 8.4 L, Total Bilirubin 0.90, AST 34, ALT 63 H, Alkaline Phosphatase 80, Total Protein 6.8, Albumin 2.8 L, Globulin 4.0, Albumin/Globulin Ratio 0.7 L Radiography Diagnostic Testing: Radiology Impression Abdomen/Pelvis CT 01/17/22 08:23 IMPRESSION: Stable examination. Electronically Signed: Arian Caballero MD at 11:49 EDT , D/C Instructions Discharge Diet: - (Low residue/low fiber) Discharge Activity: Return to Normal Activity Call your doctor if you observe: Fever of 101 or Higher, Shortness of breath, Fainting spells and Chest pain Please Follow Up With: Wendi Michel MD When: Please contact our office to schedule a 2 week follow-up Meaningful Use Info Meaningful Use Diagnoses (Choose all that apply): None applicable Discharge Plan Admission Admit Date/Time: 01/15/22 17:40 Primary Reason for Your Visit: Acute perforated diverticulitis Attending Provider: Will Owusu Primary Care Provider: Jhonathan Jaimes Consulting Providers: Wendi Michel ; Cristobal Prater Instructions Patient Instructions: Low-Fiber Diet, ED Diverticulitis Additional Instructions / Restrictions: Recommend full liquid diet today. Start low residue/low fiber diet tomorrow Discharge Orders/Prescriptions Prescriptions: New amoxicillin-pot clavulanate 875-125 mg tablet 1 tab PO BID 10 Days Qty: 20 RF: 0 Referrals / Follow Up: Jhonathan Jaimes MD [Primary Care Provider] - Wendi Michel MD [STAFF PHYSICIAN] - (Please call our office to schedule an appointment for 2 weeks from discharge ) Disposition Disposition (needs filled in before D/C Order can be placed): Home, Self Care Charges/Coding Visit Charges Inpatient E&M: 51194 [facility] Hosp
[2022-01-17 14:35] VITALS: BP 144/91; PULSE 66; RESP 16; TEMP 37; O2SAT 98
== END 2022-01-17 15:11 | disposition home or self-care (01) | DRG 392 ==
LOC: ED 17:16 → MS3 17:54
PROVIDERS: Nurse Practitioner Family; Admitting Provider Internal Medicine; Emergency Provider Emergency Medicine; PCP Family Medicine; Visit Provider Internal Medicine
DX: K57.20 Diverticulitis of large intestine with perforation and abscess without bleeding (principal); E66.9 Obesity, unspecified; Z68.36 Body mass index [BMI] 36.0-36.9, adult
CPT/HCPCS: 36415; 74177; 80048; 80053; 85025; 99284; 99406; J2185; J7030; J7050; Q9967; A4216; J0744